=== PATIENT | male | born 1955 | race African-American/Black ===

== ENCOUNTER 2018-09-25 09:47 | Inpatient (IN) | payer MEDICAID ==
[~2018-09-25] VITALS: Ht 195.6 cm; Wt 70.8 kg
--- NOTE | 2018-09-25 10:16 | NUR ---
Changed linens, skin care provided, warm blanket provided
[2018-09-25 10:20] LABS: BASOPHILS % (AUTO) 0.6 % (0.0-2.0); EOSINOPHILS % (AUTO) 0.8 % (0.0-7.0); HEMATOCRIT 28.6 % (36.7-47.1); HEMOGLOBIN 9.7 g/dL (12.5-16.3); LYMPHOCYTES # (AUTO) 1.1 K/uL (20.0-40.0); LYMPHOCYTES % (AUTO) 17.8 % (20.5-51.5); MEAN CORPUSCULAR HEMOGLOBIN 28.9 uug (23.8-33.4); MEAN CORPUSCULAR HGB CONC 34 g/dL (32.5-36.3); MEAN CORPUSCULAR VOLUME 84.9 fL (73.0-96.2); MONOCYTES # (AUTO) 0.6 K/uL (2.0-10.0); MONOCYTES % (AUTO) 8.9 % (0.0-11.0); NEUTROPHILS # (AUTO) 4.4 K/uL (1.8-8.9); NEUTROPHILS % (AUTO) 71.9 % (38.5-71.5); PLATELET COUNT (AUTO) 285 K/uL (152-348); RED BLOOD CELL COUNT(AUTO) 3.36 MIL/uL (4.06-5.63); WHITE BLOOD COUNT (AUTO) 6.2 K/uL (3.6-10.2)
--- NOTE | 2018-09-25 10:21 | NUR ---
PT DOES NOT REMEMBER HIS HOME MEDICATION NAMES AND DOSAGES.
[2018-09-25 10:30] LABS: POTASSIUM 5.1 mmol/L (3.5-5.1)
[2018-09-25 10:32] LABS: CREATININE 10.7 mg/dL (0.6-1.3)
--- NOTE | 2018-09-25 11:11 | NUR ---
patient states last Hemodialysis was 1 week ago. states "I luis Im supposed to go to hemodialysis every day"
--- NOTE | 2018-09-25 11:15 | NUR ---
double lumen HD line in place on chest. No signs of infection at the site.
--- NOTE | 2018-09-25 11:30 | NUR ---
patient resting comfortably in stretcher. no signs of distress
--- NOTE | 2018-09-25 11:50 | NUR ---
RECEIVED PATIENT FROM ER ADMITTED DX IS UREMIA, TRANSFERRED VIA GURNEY. PATIENT NO S/S OF ACUTE DISTRESSED NOTED, NO C/O PAIN NOTED AT THIS TIME, PATIENT ASSESSED, AND VITAL SIGNS TAKEN BP, 140/90, HR:63, T: 97.5 AND RR 18. MD MADE AWARE OF ARRIVAL , SAFETY AND COMFORT PROVIDED AT ALL TIMES AND WILL CONTINUE TO MONITOR.
[2018-09-25 12:30] VITALS: BP 140/94
[2018-09-25] MEDS ORDERED: HYDROCODONE/APAP 10-325 MG TABLET PO PRN (14:00)
[2018-09-25] MEDS ORDERED: MAGNESIUM HYDROXIDE 30 ML LIQUID UDC PO PRN (14:00)
[2018-09-25] MEDS ORDERED: ONDANSETRON 4 MG/2 ML VIAL IV PRN (14:00)
[2018-09-25] MEDS: HYDROCODONE/APAP 5-325MG TABLET PO PRN (18:36)
--- NOTE | 2018-09-25 18:48 | NUR ---
PATIENT C/O OF PAIN AND PAIN MEDICATIONS GIVEN. S/S OF ACUTE DISTRESSED NOTED, BED IN LOW POSITION AND 2 SIDE RAILS UP AND BED ALARM ON. SAFETY AND COMFORT PROVIDED AT ALL TIMES AND WILL CONTINUE TO MONITOR
--- NOTE | 2018-09-25 19:30 | NUR ---
Received patient awake and alert in bed. No signs of acute distress noted. No complaints of SOB. Patient is on room air saturating at 98% Complains of some pain with PRN pain medication given by day shift nurse, patient said it is effective. Heplock on the left forearm is intact and patent. Safety measures initiated. Bed is low and locked, call light within reach. Will continue to monitor.
[2018-09-25 20:00] VITALS: BP 148/67
[2018-09-26 05:02] VITALS: BP 132/79
--- NOTE | 2018-09-26 05:33 | NUR ---
patient slept well throughout shift. No signs of acute distress noted. No complaints of pain or SOB. Heplock on the left forearm is intact and patent. Vital signs remain stable. Safety measures given.
[2018-09-26 06:40] LABS: BASOPHILS % (AUTO) 0.3 % (0.0-2.0); EOSINOPHILS # (AUTO) 0.1 K/uL (0.0-0.7); HEMATOCRIT 25.6 % (36.7-47.1); HEMOGLOBIN 8.8 g/dL (12.5-16.3); LYMPHOCYTES # (AUTO) 1.1 K/uL (20.0-40.0); LYMPHOCYTES % (AUTO) 15.3 % (20.5-51.5); MEAN CORPUSCULAR HEMOGLOBIN 28.6 uug (23.8-33.4); MEAN CORPUSCULAR HGB CONC 34 g/dL (32.5-36.3); MEAN CORPUSCULAR VOLUME 83.3 fL (73.0-96.2); MONOCYTES # (AUTO) 0.5 K/uL (2.0-10.0); MONOCYTES % (AUTO) 6.2 % (0.0-11.0); NEUTROPHILS # (AUTO) 5.7 K/uL (1.8-8.9); NEUTROPHILS % (AUTO) 77.2 % (38.5-71.5); PLATELET COUNT (AUTO) 210 K/uL (152-348); RED BLOOD CELL COUNT(AUTO) 3.08 MIL/uL (4.06-5.63); WHITE BLOOD COUNT (AUTO) 7.3 K/uL (3.6-10.2)
[2018-09-26 06:53] LABS: CREATININE 6.9 mg/dL (0.6-1.3); MAGNESIUM 1.9 mg/dL (1.8-2.4); PHOSPHOROUS 4.5 mg/dL (2.5-4.9); POTASSIUM 3.8 mmol/L (3.5-5.1)
--- NOTE | 2018-09-26 07:15 | NUR ---
Received patient awake and alert in bed. No s/S of acute distress noted. No complaints of SOB. Patient is on room air saturating at 98%. IV Heplock on the left forearm , intact and patent. Safety and comfort provided at all times . Bed is low and locked and 2 side rails up, call light within reach. Will continue to monitor
[2018-09-26 11:54] VITALS: BP 147/80
--- NOTE | 2018-09-26 14:56 | NUR ---
SS CONSULTATION: SW met with patient today. Patient is a 63 year old -[place] male. Patient was in his assigned hospital room, in bed, watching TV, and receptive to meeting with this SW. Patient is oriented to his first name and to the month, however was not oriented to place, year, or situation. Patient stated that he is homeless, but then stated "I've been living in the joint since I was 11" and "I've done many bad things". Patient was not able to provide information on his medical history, but when asked about his dialysis treatment, patient stated that he receives dialysis "at the [facility] [address] the [address] next to the [facility]". 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 Patient reported having a long history of alcohol use, but did not provide details on type and frequency of alcohol use. SW asked if patient has any family or friends that SW could contact for him, and patient stated "you can call [employer]". SW was not able to gather any further information. Patient was cooperative throughout the interview, but at times his speech was incoherent. Patient presented with an abnormal thought process and delusional thought content, along with poor insight and judgement. SW then met with Pepe Higgins NP, and discussed above assessment. SW suggested a psychiatric consultation, and Pepe Higgins was in agreement with. Pepe Higgins to request a psychiatric consultation.
[2018-09-26 16:27] VITALS: BP 147/83
[2018-09-26] MEDS ORDERED: OLANZAPINE 5 MG TABLET PO SCH (16:45)
[2018-09-26] MEDS: OLANZAPINE 2.5 MG TABLET PO SCH ×2 (17:00→22:54)
--- NOTE | 2018-09-26 18:28 | NUR ---
Received patient awake in bed. alert and oriented x2 to name and place. No s/s of acute distress noted. No complaints of SOB. Mo c/o pain at this time, will continue to monitor. Safety and comfort provided at all times . Bed is low and locked and 2 side rails up, and bed alarm on . Patient seen by Dr. Cuevas with new order. Call light within reach. Will continue to monitor and Continue treatment plan.
--- NOTE | 2018-09-26 19:30 | NUR ---
Received patient awake and alert in bed. No signs of acute distress noted. No complaints of pain or SOB, patient is on room air saturating at 96% Heplock on the left forearm is intact and patent. Safety measures initiated. Bed is low and locked, call light within reach. Will continue to monitor.
[2018-09-26 20:36] VITALS: BP 137/80
--- NOTE | 2018-09-26 21:37 | NUR ---
patient is receiving dialysis, will continue to monitor.
--- NOTE | 2018-09-26 23:00 | NUR ---
Dialysis completed, no fluid taken out. Tolerated well.
[2018-09-27 04:40] VITALS: BP 147/78
--- NOTE | 2018-09-27 06:26 | NUR ---
Patient slept well throughout night. No signs of acute distress. Noted more hallucinations than previous night. Was already seen by psych doctor. Safety measures given.
[2018-09-27 07:21] LABS: CREATININE 5.7 mg/dL (0.6-1.3); POTASSIUM 3.9 mmol/L (3.5-5.1)
--- NOTE | 2018-09-27 08:00 | NUR ---
awake,alert, talking to self loudly.charge nurse talked to pt. able to comprehend,quiet down. fed self ate well, closely monitoring pt.
[2018-09-27 08:06] LABS: HEPATITIS B SURFACE AB Non Reactive (.); HEPATITIS B SURFACE AG Negative (Negative)
[2018-09-27] MEDS: OLANZAPINE 2.5 MG TABLET PO SCH ×2 (09:04→21:13)
[2018-09-27 11:15] VITALS: BP 165/91
[2018-09-27 11:33] LABS: IRON, SERUM 55 ug/dL (50-175)
--- NOTE | 2018-09-27 12:44 | NUR ---
WOUND CARE CONSULT: PT PRESENTS WITH INCONTINENCE AND LEFT MEDIAL ANKLE WOUND (MULTIPLE OPEN AREAS) PRESENT ON ADMISSION. RECOMMEND DPM CONSULT. DR YU NOTIFIED OF CONSULT REQUEST. RECOMMENDATIONS MADE FOR SKIN PROTECTION. DISCUSSED WITH NURSING STAFF. WILL SEE PRN. M D IN AGREEMENT WITH PLAN OF CARE.
[2018-09-27] MEDS ORDERED: Z GUARD REMEDY PASTE 57 GM TUBE TOP PRN (13:00)
[2018-09-27 15:15] VITALS: BP 133/82
[2018-09-27 20:23] VITALS: BP 175/91
[2018-09-27] MEDS: Z GUARD REMEDY PASTE 57 GM TUBE TOP SCH (21:14)
[2018-09-27 21:30] VITALS: BP 162/84
[2018-09-28] MEDS: ACETAMINOPHEN 325 MG TABLET PO PRN (00:29)
[2018-09-28 04:00] VITALS: BP 168/78
--- NOTE | 2018-09-28 05:44 | NUR ---
PATIENT ASLEEP IN BED. SLEPT WELL THROUGHOUT THE NIGHT. VSS. CALL LIGHT IN REACH. ALL NEEDS ATTENDED. WILL CONTINUE TO MONITOR AND ASSESS.
[2018-09-28 06:06] LABS: HEPATITIS A AB, TOTAL Positive (Negative)
[2018-09-28] MEDS: OLANZAPINE 2.5 MG TABLET PO SCH ×3 (09:00→18:58)
[2018-09-28] MEDS: GENTAMICIN SULFATE 0.1% OINT 15 GM TUBE TOP SCH (09:00)
[2018-09-28] MEDS: MUPIROCIN 2% OINT 22 GM TUBE TP SCH (09:00)
[2018-09-28] MEDS: SODIUM HYPOCHLORITE 0.125% 473 ML BOTTLE TP SCH (09:00)
[2018-09-28] MEDS: Z GUARD REMEDY PASTE 57 GM TUBE TOP SCH ×2 (09:00→20:49)
--- NOTE | 2018-09-28 09:00 | NUR ---
PT. NPO FOR CTA MEDS HELD Addendum: 09/28/18 at 1324 by JESÚS MURILLO RN AM MEDS HELD UNTIL AFTER DIALYSIS COMPLETED
[2018-09-28 11:14] VITALS: BP 113/77
[2018-09-28 15:34] VITALS: BP 121/56
[2018-09-28 17:43] LABS: *AMPHETAMINE, URINE NEGATIVE (NEGATIVE); *BARBITURATE, URINE NEGATIVE (NEGATIVE); *CANNABINOID, URINE NEGATIVE (NEGATIVE); *COCCAINE, URINE NEGATIVE (NEGATIVE); *OPIATE, URINE NEGATIVE (NEGATIVE); *PHENCYCLIDINE SCREEN,URINE NEGATIVE (NEGATIVE)
[2018-09-28 20:23] VITALS: BP 130/68
[2018-09-28] MEDS: OLANZAPINE 2.5 MG TABLET PO PRN ×2 (20:49→20:50)
[2018-09-28] MEDS: ZOLPIDEM 5 MG TABLET PO PRN (20:50)
--- NOTE | 2018-09-28 23:00 | NUR ---
Med Surg Nursing Note: On 5149 for gravely disable 1-1 @ bedside for pts safety and awol risk. pt c/o A/h v/h and being paranoid pt non compliant with staff threatening top leave the facility. Asha Gasca called Redirected to pt room given prn elise and glenroy. Requesting sandwiches ate 2 sandwiches and some pudding. Currently lying in bed resting comfortable 1-1 @ pt bedside. Side rails up Call light within reach.
--- NOTE | 2018-09-29 06:22 | NUR ---
Nurses Note: Lying in bed eyes closed slept 8 hours. 1-1 remain at his bedside for safety and awol risk. Side rails up call light within reach.
--- NOTE | 2018-09-29 07:02 | NUR ---
Received patient in bed laying comfortably with no SOB and no c/o pain . bed in low position and 2 side rails up . IV in tact and patent patient with 1: 1 sitter, no aggressive behavior at this moment. will continue to monitor and continue treatment plan.
[2018-09-29] MEDS: OLANZAPINE 2.5 MG TABLET PO SCH ×3 (08:16→17:42)
[2018-09-29] MEDS: LORAZEPAM 2 MG/1 ML VIAL IV PRN (09:00)
[2018-09-29] MEDS: THIAMINE HCL 100 MG TABLET PO SCH (09:00)
[2018-09-29] MEDS: GENTAMICIN SULFATE 0.1% OINT 15 GM TUBE TOP SCH (09:59)
[2018-09-29] MEDS: MUPIROCIN 2% OINT 22 GM TUBE TP SCH (09:59)
[2018-09-29] MEDS: SODIUM HYPOCHLORITE 0.125% 473 ML BOTTLE TP SCH (09:59)
[2018-09-29] MEDS: Z GUARD REMEDY PASTE 57 GM TUBE TOP SCH ×2 (09:59→20:36)
[2018-09-29] MEDS: DIVALPROEX SPRINKLE 125 MG CAP.SPRINK PO SCH ×2 (13:10→17:42)
[2018-09-29 14:26] LABS: BILIRUBIN,TOTAL 0.4 mg/dL (0.2-1.0); CREATININE 7.1 mg/dL (0.6-1.3); POTASSIUM 4.4 mmol/L (3.5-5.1); TOTAL PROTEIN, SERUM 6.5 g/dL (6.4-8.2)
--- NOTE | 2018-09-29 18:40 | NUR ---
Patient in bed laying comfortably and listening to music loudly with no SOB and no c/o pain. bed in low position and 2 side rails up . IV intact and patent patient with 1: 1 sitter, no aggressive behavior at this moment. Denies any SI/HI at this moment. will continue to monitor and continue treatment plan.
--- NOTE | 2018-09-29 19:30 | NUR ---
PATIENT RECEIVED IN BED. 1:1 SITTER MAINTAINED FRO SAFETY. PATIENT NOT ACUTELY AGITATED OR PARANOID AT THIS TIME. PATIENT LISTENING TO MUSIC LOUDLY. IV INTACT AND PATENT. WILL CONTINUE TO MONITOR.
[2018-09-29 20:34] VITALS: BP 151/90
[2018-09-29] MEDS: ZOLPIDEM 5 MG TABLET PO PRN (21:25)
[2018-09-30] MEDS: LORAZEPAM 2 MG/1 ML VIAL IV PRN (03:29)
--- NOTE | 2018-09-30 03:33 | NUR ---
PATIENT NOTED TO BE AGITATED. SECURITY CALLED FOR SAFETY. ATIVAN 1 MG GIVEN IN L FOREARM IV. MEDICATION EFFECTIVE. PATIENT RESTING IN BED NOW. WILL CONTINUE TO MONITOR. Addendum: 09/30/18 at 0351 by MELODIE DUNNE RN PER SITTER: PATIENT BECAME AGGRAVATED WHEN SITTER WAS CHANGING LINENS ON BED. PATIENT WANTED THE SOILED PILLOW CASE, AND WHEN THE SITTER GAVE IT TO HIM HE PUT HIS HEAD IN THE CASE AND REFUSED TO TAKE IT OFF. PATIENT EVENTUALLY REMOVED PILLOW CASE, AND THEN THIS RN GAVE HIM THE ATIVAN WHILE SECURITY STOOD BY FOR SAFETY.
[2018-09-30 05:26] VITALS: BP 115/54
--- NOTE | 2018-09-30 06:20 | NUR ---
PATIENT SLEPT ON AND OFF DURING THE NIGHT. 1:1 SITTER MAINTAINED FOR SAFETY. SIDE RAILS UP BILATERALLY. WILL ENDORSE TO ONCOMING SHIFT ACCORDINGLY.
[2018-09-30 07:28] VITALS: BP 144/86
--- NOTE | 2018-09-30 07:30 | NUR ---
Patient awake, alert, sitting up on the chair, not in any form of distress. He denies any pain or discomfort at this time. 1:1 sitter at bedside for safety.
[2018-09-30] MEDS: MUPIROCIN 2% OINT 22 GM TUBE TP SCH (08:14)
[2018-09-30] MEDS: OLANZAPINE 2.5 MG TABLET PO SCH ×3 (08:14→17:31)
[2018-09-30] MEDS: DIVALPROEX SPRINKLE 125 MG CAP.SPRINK PO SCH ×3 (08:14→17:31)
[2018-09-30] MEDS: THIAMINE HCL 100 MG TABLET PO SCH (08:14)
[2018-09-30] MEDS: Z GUARD REMEDY PASTE 57 GM TUBE TOP SCH ×2 (08:15→21:42)
[2018-09-30] MEDS ORDERED: LORAZEPAM 1 MG TABLET PO PRN (08:15)
[2018-09-30] MEDS: GENTAMICIN SULFATE 0.1% OINT 15 GM TUBE TOP SCH (10:45)
[2018-09-30] MEDS: SODIUM HYPOCHLORITE 0.125% 473 ML BOTTLE TP SCH (10:45)
[2018-09-30 12:00] VITALS: BP 149/97
[2018-09-30] MEDS: OLANZAPINE 2.5 MG TABLET PO PRN (13:58)
[2018-09-30] MEDS: HYDROCODONE/APAP 5-325MG TABLET PO PRN (13:58)
[2018-09-30 15:25] VITALS: BP 151/84
[2018-09-30 20:11] VITALS: BP 162/92
--- NOTE | 2018-10-01 06:44 | NUR ---
Patient was stable throughout the shift and has a good sleep last night. No acute distress or SOB noted. On room air. No Complain of pain. On 1:1 sitter for safety. left ankle wound dressing done, cleansed with NS, pat dry, applied Bactroban ointment, covered by Kerlix, wrapped. Hemodialysis done, 1000 ml fluid removed. Hourly round done. Safety measures observed. Fall precaution maintained. Bed in low position, side rails up x2 for safety, brake and alarm on. call light and personal belongings within reach. Continue to monitor and will endorse to the day shift nurse accordingly.
[2018-10-01 08:00] VITALS: BP 120/72
[2018-10-01] MEDS: OLANZAPINE 2.5 MG TABLET PO SCH ×3 (08:32→17:14)
[2018-10-01] MEDS: THIAMINE HCL 100 MG TABLET PO SCH (08:32)
[2018-10-01] MEDS: Z GUARD REMEDY PASTE 57 GM TUBE TOP SCH ×2 (08:32→21:03)
[2018-10-01] MEDS: DIVALPROEX SPRINKLE 125 MG CAP.SPRINK PO SCH ×3 (08:32→17:16)
[2018-10-01] MEDS: MUPIROCIN 2% OINT 22 GM TUBE TP SCH (08:33)
[2018-10-01] MEDS: GENTAMICIN SULFATE 0.1% OINT 15 GM TUBE TOP SCH (08:33)
[2018-10-01] MEDS: SODIUM HYPOCHLORITE 0.125% 473 ML BOTTLE TP SCH (08:34)
--- NOTE | 2018-10-01 10:06 | NUR ---
Received in bed, asleep, easily arousable, sitter at bedside. No c/o pain. Notified Dr Cuevas via voicemail of Hold that is due today at 1223. will continue to monitor.
[2018-10-01 12:00] VITALS: BP 125/63
--- NOTE | 2018-10-01 13:11 | NUR ---
Called Dr Pierre to see if covering for Dr Cuevas but stated she is not covering but offered to text Dr Cuevas to call third floor. Waiting for call back. Will cont to monitor.
--- NOTE | 2018-10-01 14:00 | NUR ---
DR GRANT CALLED, DR DOMÍNGUEZ TO COME FOR HIM
[2018-10-01] MEDS: NICOTINE 7 MG/24HR PATCH TD SCH (14:24)
[2018-10-01 15:55] VITALS: BP 122/61
--- NOTE | 2018-10-01 19:33 | NUR ---
Cooperative of care. take meds without any issues. Surgical shoe to left foot provided as ordered. sitter at bedside. will cont to monitor.
--- NOTE | 2018-10-01 19:45 | NUR ---
received patient from the day shift. Patient is calm and cooperative, sitter is in-line of sight. Comfort and safety measures are in place.
[2018-10-01 20:38] VITALS: BP 143/80
[2018-10-02] MEDS: ZOLPIDEM 5 MG TABLET PO PRN (00:14)
--- NOTE | 2018-10-02 04:00 | NUR ---
Patient had a sandwich and 2 pudding cups, drank some tea and coffee. Cooperative, walking in the room. Sitter is present, patient is on 14 day hold.
[2018-10-02 05:33] VITALS: BP 150/85
--- NOTE | 2018-10-02 07:05 | NUR ---
Received patient in bed laying in bed with 1:1 sitter for safety,. alert and oriented x2, able to make needs known. no SOB , no c/o pain at this time, denies and SI/HI, no aggression noted at this time. will continue to monitor and continue treatment plan.
--- NOTE | 2018-10-02 07:40 | NUR ---
Patient is awake, cooperative, slightly agitated, re-directable. Slept 4+ hours. No acute distress during the shift. Report given to the day shift RN.
[2018-10-02] MEDS: DIVALPROEX SPRINKLE 125 MG CAP.SPRINK PO SCH ×3 (08:25→17:08)
[2018-10-02] MEDS: NICOTINE 7 MG/24HR PATCH TD SCH (08:25)
[2018-10-02] MEDS: OLANZAPINE 2.5 MG TABLET PO SCH ×3 (08:25→17:08)
[2018-10-02] MEDS: THIAMINE HCL 100 MG TABLET PO SCH (08:25)
[2018-10-02] MEDS: Z GUARD REMEDY PASTE 57 GM TUBE TOP SCH ×2 (08:26→21:32)
[2018-10-02] MEDS: SODIUM HYPOCHLORITE 0.125% 473 ML BOTTLE TP SCH (08:43)
[2018-10-02] MEDS: MUPIROCIN 2% OINT 22 GM TUBE TP SCH (08:44)
[2018-10-02] MEDS: GENTAMICIN SULFATE 0.1% OINT 15 GM TUBE TOP SCH (08:44)
[2018-10-02 10:00] VITALS: BP 126/67
--- NOTE | 2018-10-02 17:43 | NUR ---
Received nutrition consult for diabetic education. Pt stated he has been diagnosed with type 2 for over 10 years but don't have much information or engage into diabetic diet. LILO provided verbal and handout on diabetic diet. Pt was very receptive to the education. Addendum: 10/02/18 at [address] Amended: Links added.
--- NOTE | 2018-10-02 18:44 | NUR ---
patient in bed laying in bed with 1:1 sitter for safety, alert and oriented x2, able to make needs known. no SOB , no c/o pain at this time, denies and SI/HI, no aggression noted at this time. patient had shower and treatment done.will continue to monitor and continue treatment plan.
[2018-10-02 19:00] VITALS: BP 134/62
[2018-10-03 04:30] VITALS: BP 141/89
--- NOTE | 2018-10-03 07:15 | NUR ---
PATIENT RECEIVED ON BED, ASLEEP AAOX2 WITH EPISODES OF AGITATION. YELLS/SCREAMS OUT PERIODICALLY. 1:1 SITTER AT BEDSIDE FOR SAFETY. IV ACCESS ON LEFT FOREARM #22 INTACT AND PATENT. NO COMPLAINTS OF PAIN/DISCOMFORT AT THIS TIME. WOUND DRESSING CLEAN AND INTACT. COMFORT MEASURES PROVIDED. CALL LIGHT WITHIN REACH. WILL CONTINUE TO MONITOR CLOSELY.
[2018-10-03] MEDS: DIVALPROEX SPRINKLE 125 MG CAP.SPRINK PO SCH ×3 (08:37→17:07)
[2018-10-03] MEDS: OLANZAPINE 2.5 MG TABLET PO SCH ×3 (08:37→17:07)
[2018-10-03] MEDS: THIAMINE HCL 100 MG TABLET PO SCH (08:37)
[2018-10-03] MEDS: NICOTINE 7 MG/24HR PATCH TD SCH (08:37)
[2018-10-03] MEDS: MUPIROCIN 2% OINT 22 GM TUBE TP SCH (08:42)
[2018-10-03] MEDS: GENTAMICIN SULFATE 0.1% OINT 15 GM TUBE TOP SCH (08:43)
[2018-10-03] MEDS: Z GUARD REMEDY PASTE 57 GM TUBE TOP SCH ×2 (08:47→20:27)
[2018-10-03] MEDS: SODIUM HYPOCHLORITE 0.125% 473 ML BOTTLE TP SCH (08:48)
[2018-10-03 10:22] VITALS: BP 103/73
[2018-10-03 15:57] VITALS: BP 144/69
--- NOTE | 2018-10-03 18:05 | NUR ---
PATIENT REMAINED STABLE THROUGHOUT SHIFT. 1:1 SITTER AT BEDSIDE AT ALL TIMES. NO COMPLAINTS OF PAIN/DISCOMFORT. PATIENT REFUSED WOUND CARE STATING "IT'S STILL GOOD". COMPLIANT WITH MEDICATIONS. ALL NEEDS ATTENDED AND ANTICIPATED. CALL LIGHT WITHIN REACH. WILL ENDORSE ACCORDINGLY.
--- NOTE | 2018-10-03 20:00 | NUR ---
Received pt. laying in bed alert oriented x2. Pt. in no discomfort or pain. IV site is patent, intact, in left forearm 22 gauge hep lock. Bed in lowest position, locked, with 2 side rails up. 1:1 Sitter for safety reasons. Will continue to monitor.
[2018-10-03 20:01] VITALS: BP 154/86
--- NOTE | 2018-10-03 22:00 | NUR ---
Pt.'s wound dressing is soiled. Cleaned wound with dakins solution, applied gentamicin, covered with gauze, and wrapped. Pt. experienced no pain throughout dressing change and tolerated change well.
[2018-10-03] MEDS: ZOLPIDEM 5 MG TABLET PO PRN (22:48)
[2018-10-04 05:46] VITALS: BP 161/89
--- NOTE | 2018-10-04 07:15 | NUR ---
RECEIVED PATIENT ON BED, AWAKE AAOX2, NO ACUTE DISTRESS NOTED. 1:1 SITTER AT BEDSIDE. IV ACCESS ON LEFT FOREARM #22 INTACT AND PATENT. PORTACATH ON RIGHT UPPER CHEST NOTED AND IN PLACE. WOUND DRESSING ON LEFT FOOT CLEAN AND DRY W/ BRACE. NO COMPLAINTS OF PAIN/DISCOMFORT. CALL LIGHT WITHIN REACH. WILL CONTINUE TO MONITOR CLOSELY.
[2018-10-04 07:41] VITALS: BP 135/85
[2018-10-04] MEDS: NICOTINE 7 MG/24HR PATCH TD SCH (08:17)
[2018-10-04] MEDS: THIAMINE HCL 100 MG TABLET PO SCH (08:20)
[2018-10-04] MEDS: DIVALPROEX SPRINKLE 125 MG CAP.SPRINK PO SCH ×3 (08:20→17:22)
[2018-10-04] MEDS: OLANZAPINE 2.5 MG TABLET PO SCH ×3 (08:20→17:18)
[2018-10-04] MEDS: GENTAMICIN SULFATE 0.1% OINT 15 GM TUBE TOP SCH (08:25)
[2018-10-04] MEDS: MUPIROCIN 2% OINT 22 GM TUBE TP SCH (08:25)
[2018-10-04] MEDS: SODIUM HYPOCHLORITE 0.125% 473 ML BOTTLE TP SCH (08:25)
[2018-10-04] MEDS: Z GUARD REMEDY PASTE 57 GM TUBE TOP SCH ×2 (08:28→21:00)
[2018-10-04 11:58] VITALS: BP 146/77
--- NOTE | 2018-10-04 12:30 | NUR ---
STARTED HEMODIALYSIS, PATIENT IN STABLE CONDITION. VITAL SIGNS WNL. WILL CONTINUE TO MONITOR.
--- NOTE | 2018-10-04 14:36 | NUR ---
HEMODIALYSIS DONE, 800 FLUIC REMOVED. PATIENT IN STABLE CONDITION. V/S WNL. WILL CONTINUE TO MONITOR CLOSELY. Addendum: 10/04/18 at 1439 by JOVI GOMEZ RN 800 ML FLUID REMOVED.
[2018-10-04 17:00] VITALS: BP 157/92
[2018-10-04] MEDS: ACETAMINOPHEN 325 MG TABLET PO PRN ×2 (17:18→23:00)
--- NOTE | 2018-10-04 18:00 | NUR ---
PATIENT NOTED WITH ELEVATED TEMPERATURE OF 100.3, ADMINISTERED TYLENOL 650 MG AND PROVIDED COOL MEASURES, BLOOD PRESSURE AND HR SLIGHTLY ELEVATED. WILL REASSESS AND MONITOR CLOSELY. WOUND CARE DONE, WELL TOLERATED
[2018-10-04 19:20] VITALS: BP 144/86
--- NOTE | 2018-10-04 19:30 | NUR ---
AWAKE ALERT, SITTER AT BEDSIDE.NO COMPLAINTS MADE, WATCHING TV IN NO ACUTE DISTRESS.
[2018-10-04 20:12] VITALS: BP 144/86
--- NOTE | 2018-10-04 22:30 | NUR ---
SLEEPING PILL GIVEN, AMBIEN 5 MG REQUESTED
[2018-10-04] MEDS: ZOLPIDEM 5 MG TABLET PO PRN (23:00)
--- NOTE | 2018-10-05 04:00 | NUR ---
agitated/uncooperative for short while,after talking to the pt. become cooperative and go back to sleep.
[2018-10-05 04:57] VITALS: BP 159/86
[2018-10-05 06:31] VITALS: BP 159/86
--- NOTE | 2018-10-05 08:00 | NUR ---
received awake alert but confused, talking to himself periodically but follows commands, on a 14 day hold, sitter in the room, safety measures maintained
[2018-10-05] MEDS: THIAMINE HCL 100 MG TABLET PO SCH (08:21)
[2018-10-05] MEDS: DIVALPROEX SPRINKLE 125 MG CAP.SPRINK PO SCH ×3 (08:21→17:14)
[2018-10-05] MEDS: NICOTINE 7 MG/24HR PATCH TD SCH (08:21)
[2018-10-05] MEDS: GENTAMICIN SULFATE 0.1% OINT 15 GM TUBE TOP SCH ×2 (08:31→09:00)
[2018-10-05] MEDS: MUPIROCIN 2% OINT 22 GM TUBE TP SCH (08:32)
[2018-10-05] MEDS: Z GUARD REMEDY PASTE 57 GM TUBE TOP SCH ×2 (08:32→21:00)
[2018-10-05] MEDS: OLANZAPINE 2.5 MG TABLET PO SCH ×3 (08:46→17:14)
[2018-10-05] MEDS: SODIUM HYPOCHLORITE 0.125% 473 ML BOTTLE TP SCH (08:48)
--- NOTE | 2018-10-05 10:00 | NUR ---
wound treatment done on left foot, bactroban oint applied. tolerated well, right upper chest permacath intact
[2018-10-05 11:35] VITALS: BP 146/78
--- NOTE | 2018-10-05 13:30 | NUR ---
went out of his room with siddhartha, insisted to go down- security called and went back to his room
[2018-10-05 15:25] VITALS: BP 145/82
--- NOTE | 2018-10-05 18:15 | NUR ---
resting in bed, took all meds and taking food well, no distress noted, all needs attended and met, sitter in room
[2018-10-05 19:29] VITALS: BP 141/75
[2018-10-06] VITALS (7 sets, daily range): BP systolic 114–160; BP diastolic 61–89
[2018-10-06] MEDS: OLANZAPINE 2.5 MG TABLET PO PRN ×2 (01:53→13:54)
[2018-10-06] MEDS: ZOLPIDEM 5 MG TABLET PO PRN (02:29)
[2018-10-06 06:14] LABS: CREATININE 7.3 mg/dL (0.6-1.3); MAGNESIUM 1.7 mg/dL (1.8-2.4); PHOSPHOROUS 3.7 mg/dL (2.5-4.9); POTASSIUM 4.8 mmol/L (3.5-5.1)
[2018-10-06 06:27] LABS: EOSINOPHILS # (AUTO) 0.1 K/uL (0.0-0.7); LYMPHOCYTES # (AUTO) 1.7 K/uL (20.0-40.0); MEAN CORPUSCULAR VOLUME 85.3 fL (73.0-96.2); NEUTROPHILS # (AUTO) 4.5 K/uL (1.8-8.9); WHITE BLOOD COUNT (AUTO) 7.5 K/uL (3.6-10.2)
[2018-10-06 06:29] LABS: BASOPHILS % (AUTO) 0.3 % (0.0-2.0); EOSINOPHILS % (AUTO) 1.3 % (0.0-7.0); LYMPHOCYTES % (AUTO) 23.1 % (20.5-51.5); MEAN CORPUSCULAR HEMOGLOBIN 28.9 uug (23.8-33.4); MEAN CORPUSCULAR HGB CONC 34 g/dL (32.5-36.3); MONOCYTES # (AUTO) 1.1 K/uL (2.0-10.0); MONOCYTES % (AUTO) 14.7 % (0.0-11.0); NEUTROPHILS % (AUTO) 60.6 % (38.5-71.5); PLATELET COUNT (AUTO) 155 K/uL (152-348)
[2018-10-06 06:43] LABS: HEMATOCRIT 19.6 % (36.7-47.1); HEMOGLOBIN 6.6 g/dL (12.5-16.3)
--- NOTE | 2018-10-06 07:30 | NUR ---
on bed, resting well. calm. breakfast served.
[2018-10-06 08:27] LABS: LYMPHOCYTES % (MANUAL) 24 % (20-40); NEUTROPHILS % (MANUAL) 60 % (42-75)
[2018-10-06 08:28] LABS: EOSINOPHILS % (MANUAL) 1 % (0-8); MONOCYTES % (MANUAL) 15 % (2-10)
[2018-10-06] MEDS: MUPIROCIN 2% OINT 22 GM TUBE TP SCH ×2 (09:00→09:27)
--- NOTE | 2018-10-06 09:00 | NUR ---
tolerated dressing well change on left foot. x2 scab brownish color noted. left small toe with minute black scab . off loading left foot as ordered
[2018-10-06] MEDS: NICOTINE 7 MG/24HR PATCH TD SCH (09:14)
[2018-10-06] MEDS: THIAMINE HCL 100 MG TABLET PO SCH (09:14)
[2018-10-06] MEDS: DIVALPROEX SPRINKLE 125 MG CAP.SPRINK PO SCH ×3 (09:14→17:49)
[2018-10-06] MEDS: OLANZAPINE 2.5 MG TABLET PO SCH ×3 (09:14→17:49)
[2018-10-06] MEDS: GENTAMICIN SULFATE 0.1% OINT 15 GM TUBE TOP SCH (09:27)
[2018-10-06] MEDS: SODIUM HYPOCHLORITE 0.125% 473 ML BOTTLE TP SCH (09:28)
[2018-10-06] MEDS: Z GUARD REMEDY PASTE 57 GM TUBE TOP SCH ×2 (09:30→20:53)
--- NOTE | 2018-10-06 12:00 | NUR ---
blood transfused with dialysis, noted having chills, shakiness. denies other reaction transfusion list. MAGDIEL Slaughter aware of reaction, lab called, nursing feed mill supervisor, Yudith, sumit.
[2018-10-06] MEDS: ACETAMINOPHEN 325 MG TABLET PO PRN (12:32)
--- NOTE | 2018-10-06 12:51 | NUR ---
no more chills noted. verbalized comfort. up chair for lunch, tolerating well
[2018-10-06 13:15] LABS: *BILIRUBIN,URIN NEGATIVE (NEGATIVE); *CLARITY,URINE CLEAR (CLEAR); *COLOR,URINE YELLOW (YELLOW); *KETONES,URINE NEGATIVE (NEGATIVE); *UROBILINOGEN,URINE 0.2 E.U./dl (NORMAL); LEUKOCYTE ESTERASE ,URINE 1+ (NEGATIVE); NITRITE, URINE NEGATIVE (NEGATIVE); PH,URINE 8.5 (5.0-8.0); UGLUCOSE NEGATIVE (NEGATIVE)
[2018-10-06 13:16] LABS: *BLOOD, URINE TRACE (NEGATIVE)
[2018-10-06 13:19] LABS: BACTERIA,URINE FEW /HPF (NONE SEEN); RBC,URINE 0-3 /HPF (0-3); SQUAMOUS EPITHELIAL CELL,UR FEW /HPF (NONE SEEN)
--- NOTE | 2018-10-06 13:54 | NUR ---
anxious, agitated. discussed inappropriate words not accepted. med x 1 prn zypreza and taken.
--- NOTE | 2018-10-06 15:00 | NUR ---
sleeping on and off, calmed down.
--- NOTE | 2018-10-06 18:07 | NUR ---
comfortable. pleasant, cooperative, ate well for dinner.
--- NOTE | 2018-10-06 19:45 | NUR ---
Received patient lying in bed, calm at the moment. Patient has a permacath on the right chest, intact. Still with IV access on the left forearm to heplock, intact. Patient confused and tends to be agitated, with 1:1 sitter at bedside for safety. No complaints at the moment. Bed in low position, locked, side rails up x 2. Will continue to monitor.
--- NOTE | 2018-10-06 21:00 | NUR ---
Received patient awake in bed with 1:1 sitter at bedside for safety. No acute distress noted. Patient not agitated at this time. IV on left FA intact and patent. Permacath on right chest noted. Safety and comfort measures implemented. Will continue to monitor throughout shift.
--- NOTE | 2018-10-07 06:15 | NUR ---
Patient rested well in between care. 1:1 sitter at bedside. No acute distress noted. No SOB. No aggressive behavior/agitation noted during pm shift. Comfort provided at all times. Safety maintained and effective. Continue plan of care.
[2018-10-07 06:17] VITALS: BP 146/70
[2018-10-07 06:37] LABS: BASOPHILS % (AUTO) 0.3 % (0.0-2.0); EOSINOPHILS # (AUTO) 0.1 K/uL (0.0-0.7); EOSINOPHILS % (AUTO) 1.1 % (0.0-7.0); HEMATOCRIT 24.3 % (36.7-47.1); HEMOGLOBIN 8.3 g/dL (12.5-16.3); LYMPHOCYTES # (AUTO) 1.9 K/uL (20.0-40.0); LYMPHOCYTES % (AUTO) 18.8 % (20.5-51.5); MEAN CORPUSCULAR HEMOGLOBIN 29.1 uug (23.8-33.4); MEAN CORPUSCULAR HGB CONC 34 g/dL (32.5-36.3); MEAN CORPUSCULAR VOLUME 85.5 fL (73.0-96.2); MONOCYTES # (AUTO) 1.1 K/uL (2.0-10.0); NEUTROPHILS % (AUTO) 68.8 % (38.5-71.5); PLATELET COUNT (AUTO) 144 K/uL (152-348); RED BLOOD CELL COUNT(AUTO) 2.84 MIL/uL (4.06-5.63); WHITE BLOOD COUNT (AUTO) 10.3 K/uL (3.6-10.2)
[2018-10-07 06:53] LABS: CREATININE 6.5 mg/dL (0.6-1.3); MAGNESIUM 1.6 mg/dL (1.8-2.4); POTASSIUM 5.2 mmol/L (3.5-5.1)
[2018-10-07] MEDS: OLANZAPINE 2.5 MG TABLET PO SCH ×3 (08:03→16:03)
[2018-10-07] MEDS: NICOTINE 7 MG/24HR PATCH TD SCH (08:03)
[2018-10-07] MEDS: THIAMINE HCL 100 MG TABLET PO SCH (08:03)
[2018-10-07] MEDS: DIVALPROEX SPRINKLE 125 MG CAP.SPRINK PO SCH ×3 (08:04→16:03)
[2018-10-07] MEDS: Z GUARD REMEDY PASTE 57 GM TUBE TOP SCH ×2 (08:24→21:00)
[2018-10-07] MEDS: MUPIROCIN 2% OINT 22 GM TUBE TP SCH (08:24)
[2018-10-07] MEDS: SODIUM HYPOCHLORITE 0.125% 473 ML BOTTLE TP SCH (08:24)
[2018-10-07 11:00] VITALS: BP 141/73
[2018-10-07 15:14] VITALS: BP 149/79
[2018-10-07] MEDS: OLANZAPINE 2.5 MG TABLET PO PRN (17:49)
[2018-10-07 20:04] VITALS: BP 164/93
[2018-10-08 06:26] VITALS: BP 146/77
--- NOTE | 2018-10-08 06:32 | NUR ---
PATIENT ALERT BUT WITH EPISODES OF CONFUSION AND AGITATION. PATIENT SLEPT MOST OF THE NIGHT. CONT ON 1;1 SITTER FOR SAFETY. PATIENT HAS NO EPISODES OF CURSING STAFF, NOR YELLING AT THIS TIME. CONT TO MONITOR.
[2018-10-08] MEDS: OLANZAPINE 2.5 MG TABLET PO SCH ×3 (07:54→16:22)
[2018-10-08] MEDS: Z GUARD REMEDY PASTE 57 GM TUBE TOP SCH ×2 (08:03→21:26)
[2018-10-08] MEDS: NICOTINE 7 MG/24HR PATCH TD SCH (08:03)
[2018-10-08] MEDS: THIAMINE HCL 100 MG TABLET PO SCH (08:03)
[2018-10-08] MEDS: DIVALPROEX SPRINKLE 125 MG CAP.SPRINK PO SCH ×3 (08:03→16:22)
[2018-10-08] MEDS: SODIUM HYPOCHLORITE 0.125% 473 ML BOTTLE TP SCH (08:04)
[2018-10-08] MEDS: GENTAMICIN SULFATE 0.1% OINT 15 GM TUBE TOP SCH (08:04)
[2018-10-08 11:00] VITALS: BP 164/89
--- NOTE | 2018-10-08 12:20 | NUR ---
REPORTED BY LAB ONE BOTEL OF BLOOD CULTURE GRAM POSITIVE COCCI IN CLUSTERS ,NOTED,MAGDIEL TALAVERA AND CHARGE NURSE MADE AWARE
--- NOTE | 2018-10-08 13:15 | NUR ---
Clinical Pharmacy Note: Vancomycin Dosing per Pharmacy Subjective: To start Vancomycin IV on this 63 yo male HD patient for sepsis Objective: BUN 46/Scr 6.5 (10/07) WBC 10.3 (10/07) Temperature 97.7 ht 195.5 cm wt 71.6kg Assessment/Plan: HD scheduled for today. As per vancomycin dosing protocol for dialysis patient, will give vanco 1gm IVPB x1 today post HD. Plan to order vancomycin random level before next HD (not yet ordered). Will continue to dose per pre-HD vancomycin level. Will follow closely daily.
[2018-10-08] MEDS ORDERED: VANCOMYCIN IV 1 G in PREMIXED 0 EACH IV ONE (15:00)
--- NOTE | 2018-10-08 15:43 | NUR ---
HEMODIALYSIS DONE, 800 ML FLUID REMOVED. PATIENT IN STABLE CONDITION. V/S WNL. WILL CONTINUE TO MONITOR CLOSELY Addendum: 10/08/18 at 1545 by GREG RUSSELL LVN 2000 ML FLUIDS REMOVED
[2018-10-08] MEDS: ACETAMINOPHEN 325 MG TABLET PO PRN (16:22)
--- NOTE | 2018-10-08 16:39 | NUR ---
AFTER DIALYSIS noted PT having chills, shakiness. denies other reaction MAGDIEL TALAVERA aware of reaction, AND DR PEDRAZA NOTIFIED
[2018-10-08 16:51] VITALS: BP 155/79
[2018-10-08] MEDS: OLANZAPINE 2.5 MG TABLET PO PRN (17:45)
[2018-10-08 20:03] VITALS: BP 145/84
--- NOTE | 2018-10-08 21:00 | NUR ---
Received pt. from TIMA Lu. Pt. is alert oriented x2 and confused. Pt. able to answer questions and follow directions. Pt. denies any pain or discomfort. Pt. has a sitter 1:1 due to 5250 hold. Pt. has IV in left forearm 20 gauge hep lock patent and intact. Pt. has right permacatheter. Pt. has left ankle wound. Bed in lowest position, 2 side rails up, bed alarm on, locked, and call light within reach. Will continue to monitor.
--- NOTE | 2018-10-08 21:10 | NUR ---
ID JUNE AT BEDSIDE
[2018-10-09 04:55] VITALS: BP 126/61
--- NOTE | 2018-10-09 05:55 | NUR ---
Patient slept intermittently t/o shift. 1:1 sitter at bedside for safety. No behavioral issues noted. Med compliant. Slept about 8 hours t/o my shift. Vital signs stable. No temperature. Wound care provided. Safety and comfort measures maintained t/o shift. All meds given as ordered. All needs met.
--- NOTE | 2018-10-09 07:05 | NUR ---
RECEIVED PATIENT SITTING ON EDGE OF BED. PATIENT AOX2 WITH 1:1 SITTER AT BED SIDE. PATIENT DENIES PAIN OR SOB. ALL NEEDS MET AT THIS TIME. DENIES SUICIDAL IDEATION. NO BEHAVIOR ISSUES NOTED AT THIS TIME. SAFETY AND FALL PREVENTION IN PLACE. BED IN LOW POSITION AND LOCKED. CALL LIGHT IN REACH. WILL CONTINUE TO MONITOR.
[2018-10-09 08:00] VITALS: BP 129/69
[2018-10-09] MEDS: OLANZAPINE 2.5 MG TABLET PO SCH ×3 (09:06→17:41)
[2018-10-09] MEDS: NICOTINE 7 MG/24HR PATCH TD SCH (09:06)
[2018-10-09] MEDS: THIAMINE HCL 100 MG TABLET PO SCH (09:06)
[2018-10-09] MEDS: DIVALPROEX SPRINKLE 125 MG CAP.SPRINK PO SCH ×3 (09:06→17:41)
[2018-10-09] MEDS: SODIUM HYPOCHLORITE 0.125% 473 ML BOTTLE TP SCH (09:07)
[2018-10-09] MEDS: MUPIROCIN 2% OINT 22 GM TUBE TP SCH (09:08)
[2018-10-09] MEDS: Z GUARD REMEDY PASTE 57 GM TUBE TOP SCH ×2 (09:10→21:27)
[2018-10-09 12:03] VITALS: BP 137/74
[2018-10-09 12:07] LABS: BASOPHILS % (AUTO) 0.4 % (0.0-2.0); EOSINOPHILS # (AUTO) 0.1 K/uL (0.0-0.7); EOSINOPHILS % (AUTO) 0.8 % (0.0-7.0); HEMATOCRIT 23.2 % (36.7-47.1); HEMOGLOBIN 7.8 g/dL (12.5-16.3); LYMPHOCYTES # (AUTO) 1.4 K/uL (20.0-40.0); LYMPHOCYTES % (AUTO) 11.4 % (20.5-51.5); MEAN CORPUSCULAR HEMOGLOBIN 29.1 uug (23.8-33.4); MEAN CORPUSCULAR HGB CONC 34 g/dL (32.5-36.3); MONOCYTES # (AUTO) 1.3 K/uL (2.0-10.0); MONOCYTES % (AUTO) 10.7 % (0.0-11.0); NEUTROPHILS # (AUTO) 9.1 K/uL (1.8-8.9); NEUTROPHILS % (AUTO) 76.7 % (38.5-71.5); PLATELET COUNT (AUTO) 122 K/uL (152-348); RED BLOOD CELL COUNT(AUTO) 2.69 MIL/uL (4.06-5.63); WHITE BLOOD COUNT (AUTO) 11.9 K/uL (3.6-10.2)
[2018-10-09 12:14] LABS: CREATININE 6.7 mg/dL (0.6-1.3); POTASSIUM 4.8 mmol/L (3.5-5.1)
--- NOTE | 2018-10-09 13:49 | NUR ---
Clinical Pharmacy Note: Vancomycin Dosing per Pharmacy Subjective: To continue Vancomycin IV on this 63 yo male HD patient for sepsis Objective: BUN 46/Scr 6.5 (10/07) WBC 10.3 (10/07) Temperature 98.2 ht 195.5 cm wt 71.6kg Assessment/Plan: No HD scheduled for today, therefore no dose for today. Last vanco 1gm IVPB x1 given 10/08 at 1600. Plan to order vancomycin random level before next HD (not yet ordered). Will continue to dose per pre-HD vancomycin level. Will follow closely daily.
[2018-10-09 16:00] VITALS: BP 146/80
--- NOTE | 2018-10-09 18:02 | NUR ---
PATIENT AOX2-3, COMPLIANT WITH ALL CARE. PATIENT HAS 1:1 SITTER AT BEDSIDE. ABLE TO AMBULATE IN [address] WITH STAND BY ASSIST. PATIENT IS ORDERED TO BE NPO AFTER MN FOR PERMACATH REMOVAL AND GUZMAN CATH INSERTION IN AM. VITAL SIGNS STABLE THROUGHOUT THE SHIFT.
--- NOTE | 2018-10-09 20:00 | NUR ---
RECEIVED PATIENT AWAKE, SITTING AT EDGE OF BED. PATIENT IS A/O X 2-3. PATIENT VERBALIZED UNDERSTANDING OF BEING NPO AFTER MIDNIGHT FOR PROCEDURE IN AM. SITTER AT BEDSIDE. DENIES PAIN. CALL LIGHT IN REACH. ALL NEEDS ATTENDED. WILL CONTINUE TO MONITOR AND ASSESS.
[2018-10-09 20:08] VITALS: BP 169/86
[2018-10-09 21:45] VITALS: BP 154/82
--- NOTE | 2018-10-10 | NUR ---
PATIENT NPO ORDERED FOR AM SURGERY. SITTER AT BEDSIDE. ALL NEEDS ATTENDED. WILL CONTINUE TO MONITOR AND ASSESS.
[2018-10-10 05:50] VITALS: BP 142/86
--- NOTE | 2018-10-10 05:53 | NUR ---
PATIENT AWAKE, WALKING AROUND HALLWAY WITH 1:1 SITTER. PATIENT HAS BEEN NPO SINCE MIDNIGHT FOR SURGERY THIS AM. VSS. PATIENT DENIES PAIN OR DISCOMFORT. NO RESP. DISTRESS NOTED. ALL NEEDS ATTENDED, WILL CONTINUE TO MONITOR AND ASSESS.
[2018-10-10 06:33] LABS: BASOPHILS % (AUTO) 0.5 % (0.0-2.0); EOSINOPHILS # (AUTO) 0.1 K/uL (0.0-0.7); EOSINOPHILS % (AUTO) 1.3 % (0.0-7.0); HEMOGLOBIN 7.5 g/dL (12.5-16.3); LYMPHOCYTES # (AUTO) 1.6 K/uL (20.0-40.0); LYMPHOCYTES % (AUTO) 19.1 % (20.5-51.5); MEAN CORPUSCULAR HEMOGLOBIN 29.4 uug (23.8-33.4); MEAN CORPUSCULAR HGB CONC 34 g/dL (32.5-36.3); MONOCYTES # (AUTO) 0.9 K/uL (2.0-10.0); MONOCYTES % (AUTO) 11.3 % (0.0-11.0); NEUTROPHILS # (AUTO) 5.7 K/uL (1.8-8.9); NEUTROPHILS % (AUTO) 67.8 % (38.5-71.5); PLATELET COUNT (AUTO) 131 K/uL (152-348); RED BLOOD CELL COUNT(AUTO) 2.55 MIL/uL (4.06-5.63); WHITE BLOOD COUNT (AUTO) 8.3 K/uL (3.6-10.2)
[2018-10-10] MEDS ORDERED: HEPARIN SODIUM,PORCINE 10,000 UNITS/10 ML VIAL ONE (06:45)
[2018-10-10] MEDS ORDERED: BACITRACIN 50,000 UNITS VIAL ONE (06:46)
[2018-10-10] MEDS ORDERED: HEPARIN/NS 500 ML ONE (06:46)
[2018-10-10] MEDS ORDERED: IOHEXOL-240 MG , 50 ML VIAL IV ONE (06:46)
[2018-10-10 06:53] LABS: BILIRUBIN,TOTAL 0.4 mg/dL (0.2-1.0); MAGNESIUM 1.8 mg/dL (1.8-2.4); PHOSPHOROUS 5.1 mg/dL (2.5-4.9); POTASSIUM 5.5 mmol/L (3.5-5.1); TOTAL PROTEIN, SERUM 6.6 g/dL (6.4-8.2)
[2018-10-10 07:02] LABS: CREATININE 7.6 mg/dL (0.6-1.3)
[2018-10-10] MEDS ORDERED: PROPOFOL 200 MG/20 ML BOTTLE IV ONE (08:14)
--- NOTE | 2018-10-10 08:20 | NUR ---
Received patient in stable condition, awake in bed. For application of Hadley catheter to OR. consent signed. NPO post midnight. Critical creatinine 7.6 relayed to TELESALES REPRESENTATIVE Vanna and surgeon aware. no new order. Continue with procedure. Patient went to OR around 8am in stable condition. no complaint voiced. will continue monitor
[2018-10-10] MEDS ORDERED: LIDOCAINE HCL 1% 20 ML VIAL ONE (08:46)
[2018-10-10 10:00] VITALS: BP 147/80
--- NOTE | 2018-10-10 10:04 | NUR ---
Patient came back from OR around 950am with RN Hadley Neumann catheter on left chest in place. no infiltration noted. no bleeding noted on site. slight stain of blood in previous Perma catheter noted on right chest. will change dressing. no complaint of pain/discomfort noted. will continue monitor
[2018-10-10] MEDS: DIVALPROEX SPRINKLE 125 MG CAP.SPRINK PO SCH ×3 (10:22→19:22)
[2018-10-10] MEDS: THIAMINE HCL 100 MG TABLET PO SCH (10:22)
[2018-10-10] MEDS: OLANZAPINE 2.5 MG TABLET PO SCH ×3 (10:22→19:22)
[2018-10-10] MEDS: GENTAMICIN SULFATE 0.1% OINT 15 GM TUBE TOP SCH (10:22)
[2018-10-10] MEDS: NICOTINE 7 MG/24HR PATCH TD SCH (10:22)
[2018-10-10] MEDS: Z GUARD REMEDY PASTE 57 GM TUBE TOP SCH ×2 (10:23→21:08)
[2018-10-10] MEDS: SODIUM HYPOCHLORITE 0.125% 473 ML BOTTLE TP SCH (10:23)
[2018-10-10] MEDS: MUPIROCIN 2% OINT 22 GM TUBE TP SCH (10:26)
[2018-10-10] MEDS: ACETAMINOPHEN 325 MG TABLET PO PRN (11:43)
[2018-10-10] MEDS ORDERED: SWABABLE VALVE TRANSFER SET EA MC ONE (11:56)
[2018-10-10] MEDS ORDERED: IV NORMAL SALINE 0 ML IV ONE (11:57)
[2018-10-10] MEDS ORDERED: IOHEXOL 350 100 ML INFUS..BTL ONE (11:57)
[2018-10-10 12:00] VITALS: BP 148/65
--- NOTE | 2018-10-10 12:10 | NUR ---
Patient chills and difficulty breathing noted. ADMISSION NURSE COORDINATOR Jimy aware. VS: 195/98, P 145 T103'F O2SAT 98%, Applied cold compress to underarm, groin. Ordered another chest xray, CTA (chest), hydralazine IV for HTN, vancomycin, gentamycin, zosyn ordered. awaiting medicine from pharmacy. will continue monitor
[2018-10-10] MEDS: hydrALAZINE HCL 20 MG/1 ML VIAL IV PRN (12:26)
[2018-10-10] MEDS ORDERED: GENTAMICIN SULFATE INJ 80 MG in IV DEXTROSE 5% 50 ML IV ONE ×3 (12:45→22:00)
[2018-10-10] MEDS: PIPERACILLIN/TAZOBACTAM/D5W 50 ML IV SCH ×2 (13:35→22:00)
[2018-10-10] MEDS ORDERED: PIPERACILLIN/TAZO 0.75 G in IV DEXTROSE 5% 50 ML IV PRN (13:45)
[2018-10-10] MEDS ORDERED: PIPERACILLIN/TAZOBACTAM/D5W 50 ML IV SCH (14:00)
--- NOTE | 2018-10-10 14:17 | NUR ---
Clinical Pharmacy Note: Vancomycin Dosing per Pharmacy Subjective: To continue Vancomycin IV on this 63 yo male HD patient for sepsis Objective: BUN 63/Scr 7.6 WBC 8.3 Temperature 97.5 Vanco pre-HD level: 6.2 ht 195.5 cm wt 71.6kg Assessment/Plan: HD scheduled for today. Since vanco pre-HD level is 6.2 mcg/ml, will give vanco 1gm IVPB x1 today post-HD. Plan to order vancomycin random level before next HD (not yet ordered). Will continue to dose per pre-HD vancomycin level. Will follow closely daily.
[2018-10-10 16:00] VITALS: BP 130/67
--- NOTE | 2018-10-10 18:24 | NUR ---
MAGDIEL Prabhakar ordered. Discontinue CTA procedure. Started dialysis until 7pm. not in distress. no complaint voiced noted. will continue monitor
[2018-10-10] MEDS ORDERED: EPOETIN ALFA 10,000 UNITS/ML VIAL IV ONE (18:30)
--- NOTE | 2018-10-10 20:00 | NUR ---
RECEIVED PATIENT AWAKE IN BED. PATIENT JUST FINISHED RECEIVING HD. A/O X3. DENIES PAIN OR DISCOMFORT. NO RESP. DISTRESS NOTED. 1:1 SITTER AT BEDSIDE FOR SAFETY. GUZMAN CATH NOTED TO LEFT CHEST WALL, DRESSING NOTED TO BE C/D/I. ON TELE SR. VSS. H/L INTACT AND PATENT. CALL LIGHT IN REACH. ALL NEEDS ATTENDED. WILL CONTINUE TO MONITOR AND ASSESS.
[2018-10-10 20:10] VITALS: BP 130/85
[2018-10-10] MEDS ORDERED: VANCOMYCIN IV 1 G in PREMIXED 0 EACH IV ONE (21:00)
--- NOTE | 2018-10-10 21:22 | NUR ---
pharmacy clinical notes; (Gentamicin dosing) S: 63 yo male on HD , was Dialyzed today , ordered Gentamicin for GNR in blood stream. Pt also on Zosyn (consulted with ID, she wants to continue with both for now until the blood CX are finalized. O: BUN/SCR 63/7.6; WBC 8.3; TEMP 102.7; DOSING WT 71.8 A/P: pt Got HD today , will give one dose of Gentamicin 80 mg x 1 post dialysis. will follow up with pre-dialysis level and dose accordingly. Siomara for predialysis level 2-3 mcg/ ml. will continue to follow up
--- NOTE | 2018-10-10 22:00 | NUR ---
2200 ZOSYN DOSE HELD PER ASSOCIATE PRODUCT INTEGRITY ENGINEER. PATIENT JUST RECEIVED ZOSYN DOSE AFTER HD.
[2018-10-11 00:52] VITALS: BP 145/74
[2018-10-11 04:00] VITALS: BP 127/56
[2018-10-11] MEDS: PIPERACILLIN/TAZOBACTAM/D5W 50 ML IV SCH ×2 (05:59→15:53)
--- NOTE | 2018-10-11 06:26 | NUR ---
PATIENT ASLEEP IN BED. SLEPT WELL. DRESSING NOTED TO LEFT CHEST, C/D/I. SITTER AT BEDSIDE FOR SAFETY. VSS, ON TELE SR. CALL LIGHT IN REACH. ALL NEEDS ATTENDED, WILL CONTINUE TO MONITOR AND ASSESS.
[2018-10-11 07:29] LABS: EOSINOPHILS # (AUTO) 0.1 K/uL (0.0-0.7); EOSINOPHILS % (AUTO) 0.5 % (0.0-7.0); MEAN CORPUSCULAR VOLUME 86.2 fL (73.0-96.2); NEUTROPHILS % (AUTO) 81.9 % (38.5-71.5)
[2018-10-11 07:31] LABS: BILIRUBIN,TOTAL 0.6 mg/dL (0.2-1.0); MAGNESIUM 1.8 mg/dL (1.8-2.4); PHOSPHOROUS 4.3 mg/dL (2.5-4.9); POTASSIUM 4.7 mmol/L (3.5-5.1); TOTAL PROTEIN, SERUM 6.3 g/dL (6.4-8.2)
[2018-10-11 07:38] LABS: BASOPHILS % (AUTO) 0.4 % (0.0-2.0); LYMPHOCYTES # (AUTO) 1.3 K/uL (20.0-40.0); LYMPHOCYTES % (AUTO) 9.1 % (20.5-51.5); MEAN CORPUSCULAR HEMOGLOBIN 28.8 uug (23.8-33.4); MEAN CORPUSCULAR HGB CONC 33 g/dL (32.5-36.3); MONOCYTES # (AUTO) 1.1 K/uL (2.0-10.0); MONOCYTES % (AUTO) 8.1 % (0.0-11.0); NEUTROPHILS # (AUTO) 11.4 K/uL (1.8-8.9); PLATELET COUNT (AUTO) 113 K/uL (152-348)
[2018-10-11 07:39] LABS: RED BLOOD CELL COUNT(AUTO) 2.35 MIL/uL (4.06-5.63)
[2018-10-11 07:42] LABS: WHITE BLOOD COUNT (AUTO) 13.9 K/uL (3.6-10.2)
[2018-10-11 07:45] LABS: HEMOGLOBIN 6.8 g/dL (12.5-16.3)
[2018-10-11 07:46] LABS: HEMATOCRIT 20.3 % (36.7-47.1)
[2018-10-11 08:00] VITALS: BP 115/56
[2018-10-11] MEDS: DIVALPROEX SPRINKLE 125 MG CAP.SPRINK PO SCH ×3 (08:53→17:37)
[2018-10-11] MEDS: NICOTINE 7 MG/24HR PATCH TD SCH (08:53)
[2018-10-11] MEDS: OLANZAPINE 2.5 MG TABLET PO SCH ×3 (08:53→17:37)
[2018-10-11] MEDS: Z GUARD REMEDY PASTE 57 GM TUBE TOP SCH ×2 (08:54→21:30)
[2018-10-11] MEDS: THIAMINE HCL 100 MG TABLET PO SCH (08:54)
[2018-10-11 11:00] VITALS: BP 120/60
[2018-10-11 11:42] LABS: LYMPHOCYTES % (MANUAL) 7 % (20-40); MONOCYTES % (MANUAL) 4 % (2-10); NEUTROPHILS % (MANUAL) 89 % (42-75)
[2018-10-11 13:23] VITALS: BP 125/63
[2018-10-11 13:38] LABS: VANCOMYCIN,RANDOM 20.6 ug/mL (18.0-26.0)
[2018-10-11] MEDS: SODIUM HYPOCHLORITE 0.125% 473 ML BOTTLE TP SCH (13:57)
[2018-10-11 14:00] VITALS: BP 153/80
--- NOTE | 2018-10-11 14:44 | NUR ---
pharmacy clinical notes; (Gentamicin dosing) S: 63 yo male on HD , was Dialyzed today , ordered Gentamicin for GNR in blood stream. Pt also on Zosyn (consulted with ID, she wants to continue with both for now until the blood CX are finalized. O: BUN/SCR 48/6.0; WBC 13.9; TEMP 98.6; DOSING WT 71.8 Pre-HD level today with am labs: 3.0 A/P: Patient received HD today. Per pre-HD level, dosed another [id number] gentamicin (~1.5mg/kg) due today at 1600 after dialysis. Will continue to follow HD schedule for further dosing. Will monitor
--- NOTE | 2018-10-11 14:50 | NUR ---
Clinical Pharmacy Note: Vancomycin Dosing per Pharmacy Subjective: To continue Vancomycin IV on this 63 yo male HD patient for sepsis Objective: BUN 48/Scr 6.0 WBC 13.9 Temperature 98.6 Vanco pre-HD level: 20.6 ht 195.5 cm wt 71.6kg Assessment/Plan: Patient received HD today however as pre-HD level supratherapeutic, no further dose will be given for today. Will continue to follow HD schedule for further dosing. Will monitor
[2018-10-11] MEDS ORDERED: GENTAMICIN SULFATE INJ 100 MG in IV DEXTROSE 5% 100 ML IV ONE (16:00)
--- NOTE | 2018-10-11 19:02 | NUR ---
PATIENT HAS BEEN COOPERATIVE WITH CARE, ALL NEEDS MET, DIALYSIS COMPLETED TODAY WITH NO COMPLICATIONS, PATIENT IN NO DISTRESS THROUGHOUT SHIFT. SITTER AT BEDSIDE AND ALL NEEDS MET. BED IN LOW POSITION, SIDE RAILS UP X2.
--- NOTE | 2018-10-11 20:00 | NUR ---
RECEIVED PATIENT ASLEEP AND RESTING COMFORTABLY IN BED WITH 1:1 SITTER AT BEDSIDE. NO SIGNS OR SYMPTOMS OF ACUTE DISTRESS OR DISCOMFORT NOTED OR OBSERVED. ZAKI CATH ON LEFT FOREARM IS PATENT AND INTACT. SAFETY AND FALL PRECAUTION MEASURES ARE IN PLACE. PERSONAL ITEMS AND CALL LIGHT ARE WITHIN REACH AT ALL TIMES. WILL CONTINUE TO MONITOR.
--- NOTE | 2018-10-11 21:00 | NUR ---
NEW ORDER FOR LEVAQUIN 250 MG PO NOTED AND CARRIED OUT.
[2018-10-11] MEDS: CULTURELLE CAPSULE PO SCH (21:31)
--- NOTE | 2018-10-11 21:42 | NUR ---
PATIENT REFUSING TO HAVE TELEMONITOR CONNECTED. EXPLAINED RISKS/BENEFITS TIMES 3, STILL REFUSED.
[2018-10-11] MEDS ORDERED: LEVOFLOXACIN 250 MG TABLET ONE (21:48)
[2018-10-11] MEDS: LEVOFLOXACIN 250 MG TABLET PO SCH (21:57)
--- NOTE | 2018-10-11 22:57 | NUR ---
NOTIFIED MAGDIEL TALAVERA REGARDING PT REFUSAL OF TELEMONITOR. NO NEW ORDERS RECEIVED.
--- NOTE | 2018-10-12 05:00 | NUR ---
PATIENT REFUSING TO HAVE VITAL SIGNS TAKEN. EXPLAINED IMPORTANCE OF MONITORING VITAL SIGNS SINCE IS REFUSING TELE MONITORING THREE TIMES AND PATIENT STILL REFUSED.
[2018-10-12 07:03] LABS: BASOPHILS % (AUTO) 0.3 % (0.0-2.0); EOSINOPHILS # (AUTO) 0.1 K/uL (0.0-0.7); EOSINOPHILS % (AUTO) 0.6 % (0.0-7.0); HEMATOCRIT 23.8 % (36.7-47.1); LYMPHOCYTES # (AUTO) 1.6 K/uL (20.0-40.0); LYMPHOCYTES % (AUTO) 12.9 % (20.5-51.5); MEAN CORPUSCULAR HEMOGLOBIN 28.9 uug (23.8-33.4); MEAN CORPUSCULAR HGB CONC 34 g/dL (32.5-36.3); MEAN CORPUSCULAR VOLUME 86.2 fL (73.0-96.2); MONOCYTES # (AUTO) 1.3 K/uL (2.0-10.0); MONOCYTES % (AUTO) 10.7 % (0.0-11.0); NEUTROPHILS # (AUTO) 9.1 K/uL (1.8-8.9); NEUTROPHILS % (AUTO) 75.5 % (38.5-71.5); PLATELET COUNT (AUTO) 127 K/uL (152-348); RED BLOOD CELL COUNT(AUTO) 2.76 MIL/uL (4.06-5.63); WHITE BLOOD COUNT (AUTO) 12.1 K/uL (3.6-10.2)
--- NOTE | 2018-10-12 07:15 | NUR ---
RECEIVED PATIENT IN STABLE CONDITION, PATIENT ASLEEP AND IN BED.SIDE RAIL UP X2, BED ALARM ON, AAND CALL LIGHT WITHIN REACH. SITTER AT BEDSIDE.
[2018-10-12 07:23] LABS: CREATININE 5.4 mg/dL (0.6-1.3); MAGNESIUM 1.7 mg/dL (1.8-2.4); POTASSIUM 4.3 mmol/L (3.5-5.1)
[2018-10-12] MEDS: OLANZAPINE 2.5 MG TABLET PO SCH ×3 (08:00→17:58)
[2018-10-12] MEDS: THIAMINE HCL 100 MG TABLET PO SCH (11:20)
[2018-10-12] MEDS: CULTURELLE CAPSULE PO SCH ×2 (11:24→21:32)
[2018-10-12] MEDS: DIVALPROEX SPRINKLE 125 MG CAP.SPRINK PO SCH ×3 (11:24→17:58)
[2018-10-12] MEDS: Z GUARD REMEDY PASTE 57 GM TUBE TOP SCH ×2 (11:26→21:33)
[2018-10-12] MEDS: SODIUM HYPOCHLORITE 0.125% 473 ML BOTTLE TP SCH (11:27)
[2018-10-12] MEDS: NICOTINE 7 MG/24HR PATCH TD SCH (11:28)
--- NOTE | 2018-10-12 11:30 | NUR ---
Clinical Pharmacy Note: Vancomycin Dosing per Pharmacy Subjective: To continue Vancomycin IV on this 63 yo male HD patient for sepsis Objective: BUN 35/Scr 5.4 WBC 12.1 Temperature ;not recorded yet for today Vanco pre-HD level on 10/11:20.6, no dose given. ht 195.5 cm wt 71.6kg Assessment/Plan: Will continue to dose pre-HD random level. Since patient will be dialyzed today, will check random level prior to HD(on order) for further dosing. Will follow daily. Addendum: 10/12/18 at 1611 by ANAY RODRÍGUEZ ADM VANCOMYCIN PRE-HD LEVEL IS 16.1. 500MG IV X1 AFTER HD TODAY.
--- NOTE | 2018-10-12 11:42 | NUR ---
pharmacy clinical notes; (Gentamicin dosing) S: 63 yo male on HD , will be Dialyzed today , ordered Gentamicin for GNR in blood stream. O: BUN/SCR 35/5.4; WBC 12.1; TEMP not recorded yet; DOSING WT 71.8 Pre-HD level yesterday with am labs: 3.0, 100mg x1 given A/P; Will continue to dose pre-HD random level. Since patient will be dialyzed today, will order random level on am labs for further dosing. Will follow daily. Addendum: 10/12/18 at 1605 by ANAY RODRÍGUEZ ADM GENTAMICIN LEVEL IS 4.5. NO DOSE TODAY.
[2018-10-12] MEDS: GENTAMICIN SULFATE 0.1% OINT 15 GM TUBE TOP SCH (11:44)
[2018-10-12 12:30] VITALS: BP 141/49
[2018-10-12 15:39] VITALS: BP 156/78
--- NOTE | 2018-10-12 16:00 | NUR ---
PHARMACY NOTIFIED REGARDING MAGNESIUM PROTOCOL. PATIENT'S MG LEVEL 1.7. PER PHARMACY, ADMINISTER POST HD. HD ETA 1730. WILL ENDORSE TO OBSTETRICS GYN PHYSICIAN RN.
--- NOTE | 2018-10-12 18:38 | NUR ---
PATIENT HAS BEEN COOPERATIVE WITH CARE, ALL NEEDS MET, WOUND CARE PROVIDED ON LEFT ANKLE, PATIENT IN NO DISTRESS THROUGHOUT SHIFT. SITTER AT BEDSIDE. BED IN LOW POSITION, SIDE RAILS UP X2. CALL LIGHT WITHIN REACH.
--- NOTE | 2018-10-12 20:00 | NUR ---
RECEIVED PATIENT RESTING COMFORTABLY IN BED WITH 1:1 SITTER AT BEDSIDE. ALL SAFETY AND FALL PRECAUTIONS IN PLACE. CALL LIGHT AND PERSONAL ITEMS WITHIN REACH AT ALL TIMES. WILL CONTINUE TO MONITOR.
[2018-10-12] MEDS ORDERED: VANCOMYCIN IV 500 MG in IV DEXTROSE 5% 100 ML IV ONE (23:30)
[2018-10-13 06:00] VITALS: BP 162/71
--- NOTE | 2018-10-13 06:00 | NUR ---
PATIENT SLEPT COMFORTABLY THROUGHOUT NIGHT AND WAS COMPLIANT WITH ALL ASPECTS WITH CARE. SAFETY AND FALL PRECAUTIONS REMAIN IN PLACE. PERSONAL ITEMS AND CALL LIGHT ARE WITHIN REACH AT ALL TIMES.
[2018-10-13 06:55] LABS: BASOPHILS % (AUTO) 0.4 % (0.0-2.0); EOSINOPHILS # (AUTO) 0.1 K/uL (0.0-0.7); EOSINOPHILS % (AUTO) 1.3 % (0.0-7.0); HEMATOCRIT 24.4 % (36.7-47.1); HEMOGLOBIN 8.3 g/dL (12.5-16.3); LYMPHOCYTES # (AUTO) 1.8 K/uL (20.0-40.0); LYMPHOCYTES % (AUTO) 19.1 % (20.5-51.5); MEAN CORPUSCULAR HEMOGLOBIN 29.3 uug (23.8-33.4); MEAN CORPUSCULAR HGB CONC 34 g/dL (32.5-36.3); MEAN CORPUSCULAR VOLUME 86.4 fL (73.0-96.2); MONOCYTES # (AUTO) 1.3 K/uL (2.0-10.0); MONOCYTES % (AUTO) 13.8 % (0.0-11.0); NEUTROPHILS % (AUTO) 65.4 % (38.5-71.5); PLATELET COUNT (AUTO) 139 K/uL (152-348); RED BLOOD CELL COUNT(AUTO) 2.83 MIL/uL (4.06-5.63); WHITE BLOOD COUNT (AUTO) 9.2 K/uL (3.6-10.2)
[2018-10-13 07:00] VITALS: BP 162/71
[2018-10-13 07:12] LABS: CREATININE 5.2 mg/dL (0.6-1.3); POTASSIUM 4.5 mmol/L (3.5-5.1)
--- NOTE | 2018-10-13 07:25 | NUR ---
RECEIVED REPORT FROM FORMS EXAMINER NURSE, PATIENT IN BED AWAKE, NO DISTRESS NOTED AT THIS TIME, BED IN LOW POSITION, SIDE RAILS UP X2. SITTER AT BEDSIDE.
[2018-10-13 07:27] LABS: MAGNESIUM 1.8 mg/dL (1.8-2.4)
[2018-10-13 08:00] VITALS: BP 169/87
[2018-10-13] MEDS: CULTURELLE CAPSULE PO SCH ×2 (08:31→22:05)
[2018-10-13] MEDS: DIVALPROEX SPRINKLE 125 MG CAP.SPRINK PO SCH ×3 (08:31→16:06)
[2018-10-13] MEDS: SODIUM HYPOCHLORITE 0.125% 473 ML BOTTLE TP SCH (08:32)
[2018-10-13] MEDS: Z GUARD REMEDY PASTE 57 GM TUBE TOP SCH ×2 (08:32→21:00)
[2018-10-13] MEDS: OLANZAPINE 2.5 MG TABLET PO SCH ×3 (08:32→16:06)
[2018-10-13] MEDS: THIAMINE HCL 100 MG TABLET PO SCH (08:32)
[2018-10-13] MEDS: MUPIROCIN 2% OINT 22 GM TUBE TP SCH (08:33)
[2018-10-13] MEDS: NICOTINE 7 MG/24HR PATCH TD SCH (08:33)
[2018-10-13] MEDS: hydrALAZINE HCL 20 MG/1 ML VIAL IV PRN ×2 (09:12→15:56)
[2018-10-13 11:00] VITALS: BP 161/85
--- NOTE | 2018-10-13 12:56 | NUR ---
Pharmacy clinical notes; (Gentamicin dosing) S: To continue gentamcin dosing for this 63 yo male on HD for bacteremia. O: BUN/SCR 29/5.2; WBC 9.2; TEMP 98.9 ht 195.6 cm wt 70.8 kg A/P; There will be no HD today (per HD RN), Thus no dose shall be due today. Will continue to dose pre-HD random level. Will follow daily.
--- NOTE | 2018-10-13 12:59 | NUR ---
Clinical Pharmacy Note: Vancomycin Dosing per Pharmacy Subjective: To continue Vancomycin IV on this 63 yo male HD patient for sepsis Objective: BUN 29/Scr 5.2 WBC 9.2 Temperature 98.9 ht 195.5 cm wt 71.6kg Assessment/Plan: No HD has been scheduled for today (per HD RN), thus, no dose shall be due today. Will continue to dose pre-HD random level (not yet ordered). Will follow daily.
[2018-10-13 16:00] VITALS: BP 171/87
--- NOTE | 2018-10-13 17:57 | NUR ---
Patient has been cooperative with care, all needs met, sitter at bedside. Patient has a good appetite and frequently asks for snacks. Currently patient is in bed, no distress noted, bed in low position, side rails up x2.
[2018-10-13 21:18] VITALS: BP 174/85
[2018-10-13] MEDS: LEVOFLOXACIN 250 MG TABLET PO SCH (22:05)
[2018-10-14 07:30] VITALS: BP 147/73
[2018-10-14] MEDS: DIVALPROEX SPRINKLE 125 MG CAP.SPRINK PO SCH ×3 (08:12→16:04)
[2018-10-14] MEDS: OLANZAPINE 2.5 MG TABLET PO SCH ×3 (08:13→16:04)
[2018-10-14] MEDS: THIAMINE HCL 100 MG TABLET PO SCH (08:13)
[2018-10-14] MEDS: NICOTINE 7 MG/24HR PATCH TD SCH (08:13)
[2018-10-14] MEDS: CULTURELLE CAPSULE PO SCH ×2 (08:13→21:51)
[2018-10-14 09:40] LABS: BASOPHILS % (AUTO) 0.5 % (0.0-2.0); EOSINOPHILS # (AUTO) 0.1 K/uL (0.0-0.7); HEMATOCRIT 27.4 % (36.7-47.1); HEMOGLOBIN 9.1 g/dL (12.5-16.3); LYMPHOCYTES # (AUTO) 1.5 K/uL (20.0-40.0); LYMPHOCYTES % (AUTO) 18.6 % (20.5-51.5); MEAN CORPUSCULAR HGB CONC 33 g/dL (32.5-36.3); MEAN CORPUSCULAR VOLUME 87.2 fL (73.0-96.2); MONOCYTES # (AUTO) 0.8 K/uL (2.0-10.0); MONOCYTES % (AUTO) 10.1 % (0.0-11.0); NEUTROPHILS # (AUTO) 5.6 K/uL (1.8-8.9); NEUTROPHILS % (AUTO) 69.8 % (38.5-71.5); PLATELET COUNT (AUTO) 192 K/uL (152-348); RED BLOOD CELL COUNT(AUTO) 3.15 MIL/uL (4.06-5.63)
[2018-10-14 09:49] LABS: CREATININE 7.1 mg/dL (0.6-1.3); MAGNESIUM 1.8 mg/dL (1.8-2.4); PHOSPHOROUS 5.2 mg/dL (2.5-4.9); POTASSIUM 4.3 mmol/L (3.5-5.1)
[2018-10-14 10:41] LABS: VANCOMYCIN,RANDOM 12.9 ug/mL (18.0-26.0)
--- NOTE | 2018-10-14 10:53 | NUR ---
HEMODIALYSIS DONE, 2 litter FLUID REMOVED. PATIENT IN STABLE CONDITION. V/S WNL. WILL CONTINUE TO MONITOR CLOSELY
[2018-10-14 12:17] VITALS: BP 148/86
--- NOTE | 2018-10-14 13:38 | NUR ---
Clinical Pharmacy Note: Vancomycin Dosing per Pharmacy Subjective: To continue Vancomycin IV on this 63 yo male HD patient for sepsis Objective: BUN 50/Scr 7.1 WBC 8 Temperature 98.4 pre-HD vanco level: 12.9 ht 195.5 cm wt 71.6kg Assessment/Plan: HD has already been done early am today. Since vanco pre_HD level is 12.9 mcg/ml, will give vanco 1gm IVPB x1 today. Will continue to dose pre-HD random level (not yet ordered). Will follow daily.
--- NOTE | 2018-10-14 13:40 | NUR ---
Pharmacy clinical notes; (Gentamicin dosing) S: To continue gentamcin dosing for this 63 yo male on HD for bacteremia. O: BUN/SCR 50/7.1; WBC 8; TEMP 98.4 Pre-HD gentamicin level: 1.0 ht 195.6 cm wt 70.8 kg A/P; HD has already been done early am today. Since pre-HD level is 1 mcg/ml, will give gentamicin 100 mg IVPB x1 dose today. Will continue to dose pre-HD random level. Will follow daily.
[2018-10-14] MEDS ORDERED: VANCOMYCIN IV 1 G in PREMIXED 0 EACH IV ONE (14:00)
[2018-10-14] MEDS ORDERED: GENTAMICIN SULFATE INJ 100 MG in IV DEXTROSE 5% 100 ML IV ONE (16:00)
[2018-10-14 16:01] VITALS: BP 156/78
[2018-10-14 19:34] VITALS: BP 148/72
--- NOTE | 2018-10-15 07:14 | NUR ---
Pt slept well throughout the night. No behavioral issues noted. Sitter at bedside. NPO since midnight for perma cath insertion procedure today. No acute changes noted.
[2018-10-15 07:42] LABS: CREATININE 6.8 mg/dL (0.6-1.3); MAGNESIUM 1.9 mg/dL (1.8-2.4)
[2018-10-15] MEDS: OLANZAPINE 2.5 MG TABLET PO SCH ×3 (07:57→15:57)
[2018-10-15] MEDS: NICOTINE 7 MG/24HR PATCH TD SCH (07:57)
[2018-10-15] MEDS: DIVALPROEX SPRINKLE 125 MG CAP.SPRINK PO SCH ×3 (07:57→15:57)
[2018-10-15 07:59] LABS: BASOPHILS % (AUTO) 0.4 % (0.0-2.0); EOSINOPHILS # (AUTO) 0.1 K/uL (0.0-0.7); EOSINOPHILS % (AUTO) 1.3 % (0.0-7.0); HEMATOCRIT 25.5 % (36.7-47.1); HEMOGLOBIN 8.5 g/dL (12.5-16.3); LYMPHOCYTES # (AUTO) 1.7 K/uL (20.0-40.0); LYMPHOCYTES % (AUTO) 23.9 % (20.5-51.5); MEAN CORPUSCULAR HEMOGLOBIN 29.4 uug (23.8-33.4); MEAN CORPUSCULAR HGB CONC 33 g/dL (32.5-36.3); MEAN CORPUSCULAR VOLUME 88.3 fL (73.0-96.2); MONOCYTES % (AUTO) 13.6 % (0.0-11.0); NEUTROPHILS # (AUTO) 4.3 K/uL (1.8-8.9); NEUTROPHILS % (AUTO) 60.8 % (38.5-71.5); PLATELET COUNT (AUTO) 173 K/uL (152-348); RED BLOOD CELL COUNT(AUTO) 2.89 MIL/uL (4.06-5.63)
[2018-10-15] MEDS: THIAMINE HCL 100 MG TABLET PO SCH (09:00)
[2018-10-15] MEDS: CULTURELLE CAPSULE PO SCH (09:00)
[2018-10-15 10:00] VITALS: BP 148/83
[2018-10-15] MEDS ORDERED: HEPARIN SODIUM,PORCINE 10,000 UNITS/10 ML VIAL ONE (12:31)
[2018-10-15] MEDS ORDERED: LIDOCAINE HCL 1% 20 ML VIAL ONE (12:31)
[2018-10-15] MEDS ORDERED: HEPARIN/NS 500 ML ONE (12:31)
[2018-10-15] MEDS ORDERED: IOHEXOL-240 MG , 50 ML VIAL IV ONE (12:31)
[2018-10-15] MEDS ORDERED: BUPIVACAINE 0.25% 30 ML VIAL ONE (12:31)
--- NOTE | 2018-10-15 13:01 | NUR ---
linical Pharmacy Note: Vancomycin Dosing per Pharmacy Subjective: To continue Vancomycin IV on this 63 yo male HD patient for sepsis Objective: BUN 46/Scr 6.8 WBC 7 Temperature 98.9 ht 195.5 cm wt 71.6kg Assessment/Plan: No HD has been scheduled for today (per HD RN), thus, no dose shall be due today. Will continue to dose pre-HD random level (not yet ordered). Will follow daily.
--- NOTE | 2018-10-15 13:01 | NUR ---
Pharmacy clinical notes; (Gentamicin dosing) S: To continue gentamcin dosing for this 63 yo male on HD for bacteremia. O: BUN/SCR 46/6.8; WBC 7; TEMP 98.4 ht 195.6 cm wt 70.8 kg A/P; There will be no HD today (per HD RN), Thus no dose shall be due today. Will continue to dose pre-HD random level. Will follow daily.
--- NOTE | 2018-10-15 13:05 | NUR ---
PT WENT TO OR ABED FOR PROCEDURE IN STABLE CONDITION
[2018-10-15] MEDS ORDERED: FENTANYL CITRATE 100 MCG/2 ML AMPUL ONE (13:29)
[2018-10-15] MEDS ORDERED: Levofloxacin PO (13:31)
[2018-10-15] MEDS ORDERED: OLAN2.5T3 PO (13:31)
[2018-10-15] MEDS ORDERED: DIVA125C2 PO (13:31)
[2018-10-15] MEDS ORDERED: LACT1CAP57 PO (13:31)
--- NOTE | 2018-10-15 15:00 | NUR ---
RECEIVED BACK FROM RECOVERY ROOM VIA BED IN STABLE CONDITION
[2018-10-15] MEDS ORDERED: IV NORMAL SALINE 500 ML BAG IV ONE (17:12)
[2018-10-15] MEDS ORDERED: LIDOCAINE-MPF 2% 5 ML VIAL MC ONE (17:12)
[2018-10-15] MEDS ORDERED: CEFAZOLIN 1 G VIAL MC ONE (17:12)
[2018-10-15] MEDS ORDERED: PROPOFOL 200 MG/20 ML BOTTLE IV ONE (17:12)
[2018-10-15] MEDS ORDERED: IV NORMAL SALINE 1000 ML BAG IV ONE (17:12)
--- NOTE | 2018-10-15 17:13 | NUR ---
D/C ORDERS RECEIVED NOTED AND CARRIED OUT,D/C [facility] PER MD ORDERS,PT LEFT THE FACILITY VIA PRIVATE CAR IN STABLE CONDITION
[2018-10-15 17:14] VITALS: BP 165/84
== END 2018-10-15 17:13 | DRG 470 ==
LOC: ER 09:47 → MEDSURG3 11:36 → TELE3 10-10 12:28 → MEDSURG3 10-13 15:25
PROVIDERS: ADMIT Nurse Practitioner Acute Care; ATTEND Nurse Practitioner Acute Care
PROC: 5A1D70Z Performance of Urinary Filtration, Intermittent, Less than 6 Hours Per Day (ICD-10-PCS; principal; 2018-09-26)
PROC: 30233N1 Transfusion of Nonautologous Red Blood Cells into Peripheral Vein, Percutaneous Approach (ICD-10-PCS; 2018-10-06)
PROC: 02PY33Z Removal of Infusion Device from Great Vessel, Percutaneous Approach (ICD-10-PCS; 2018-10-10)
PROC: 02HV33Z Insertion of Infusion Device into Superior Vena Cava, Percutaneous Approach (ICD-10-PCS; 2018-10-10)
PROC: B518ZZA Fluoroscopy of Superior Vena Cava, Guidance (ICD-10-PCS; 2018-10-15)
PROC: 02HV33Z Insertion of Infusion Device into Superior Vena Cava, Percutaneous Approach (ICD-10-PCS; 2018-10-15)
DX: I12.0 Hypertensive chronic kidney disease with stage 5 chronic kidney disease or end stage renal disease (principal); A41.52 Sepsis due to Pseudomonas; A41.2 Sepsis due to unspecified staphylococcus; A41.51 Sepsis due to Escherichia coli [E. coli]; G93.41 Metabolic encephalopathy; N18.6 End stage renal disease; D69.6 Thrombocytopenia, unspecified; D62 Acute posthemorrhagic anemia; T80.211A Bloodstream infection due to central venous catheter, initial encounter; F20.0 Paranoid schizophrenia; F03.90 Unspecified dementia, unspecified severity, without behavioral disturbance, psychotic disturbance, mood disturbance, and anxiety; S93.602A Unspecified sprain of left foot, initial encounter; D63.8 Anemia in other chronic diseases classified elsewhere; Z99.2 Dependence on renal dialysis; Z91.15 Patient's noncompliance with renal dialysis; F10.20 Alcohol dependence, uncomplicated; Y90.9 Presence of alcohol in blood, level not specified; Z59.0 Homelessness; F17.210 Nicotine dependence, cigarettes, uncomplicated; X58.XXXA Exposure to other specified factors, initial encounter; Y92.89 Other specified places as the place of occurrence of the external cause; I70.0 Atherosclerosis of aorta; Z91.19 Patient's noncompliance with other medical treatment and regimen; M89.8X9 Other specified disorders of bone, unspecified site; R65.20 Severe sepsis without septic shock; B19.20 Unspecified viral hepatitis C without hepatic coma
CPT/HCPCS: 36415; 71045; 73630; 80307; 83550; 83735; 84100; 85025; 86704; 86705; 86706; 86708; 86803; 86850; 86900; 86901; 86920; 87040; 87070; 87075; 87077; 87340; 90937; 93307; 97116; 97530; A4649; A4663; A9150; C1751; G0378; J0360; J0690; J0885; J1580; J1644; J2060; J2543; J3010; J3370; J3490; J7030; J7040; J7050; J7060; P9016-BL; P9021; Q9966; Q9967